=== PATIENT | female | born 1975 | race Caucasian/White ===

== ENCOUNTER 2017-02-13 00:09 | Emergency (ER) | payer OTHER ==
[2017-02-13] MEDS ORDERED: IBUPROFEN 600 MG TABLET PO ONE (01:13)
[2017-02-13] MEDS ORDERED: HYDROcodone/ACETAMINOPHEN 1 EACH TABLET PO ONE (01:13)
--- NOTE | 2017-02-13 01:18 | ERNOTE ---
Upper Extremity HPI - Narrative Date of Service: 02/13/17 - General Extremities Pain Location: shoulder: right Time Seen by Provider: 02/13/17 00:15 Source: patient - Immun/Allergies/Home Medications Immunizations: IMMUNIZATION HX Immunizations Up to Date No History of Influenza Vaccine No Hx Pneumococcal Vaccination No Allergies/Adverse Reactions: Allergies Allergy/AdvReac Type Severity Reaction Status Date / Time No Known Allergies Allergy Verified 06/26/14 14:10 Home Medications: HOME MEDICATIONS Levothyroxine Sodium 130 mcg PO DAILY 12/11/12 [Last Taken Unknown] Norgestimate-Ethinyl Estradiol [Ortho Tri-Cyclen Lo] 1 each PO DAILY 06/26/14 [ Last Taken Unknown] Sennosides/Docusate Sodium [Senokot-S] 2 tab PO DAILY 06/26/14 [Last Taken Unknown] HYDROcodone/ACETAMINOPHEN [[place] 5-325] 1 each PO Q4H PRN #20 tablet 02/13/17 [ Last Taken Unknown] - History of Present Illness Narrative: This is a 41-year-old female who comes to the emergency department complaining of right shoulder pain. She is right-hand dominant. The patient says that she woke up with the pain on . She said any little movement would make it hurt more. Over the last couple of days the pain has been getting worse. She says range of motion makes it worse. No recent injuries. Has not fallen. Not having pain up into the neck. No numbness or tingling. No chest pain or other symptoms such as shortness of breath nausea or vomiting or diaphoresis are noted. No previous injuries. Review of Systems - Review of Systems Constitutional: Present: no symptoms reported EYE: Present: no symptoms reported ENT: Present: no symptoms reported Respiratory: Present: no symptoms reported Cardiology: Present: no symptoms reported Gastrointestinal/Abdominal: Present: no symptoms reported Genitourinary: Present: no symptoms reported Musculoskeletal: Present: See HPI Neurological: Present: no symptoms reported Endocrine: Present: no symptoms reported Hematologic/Lymphatic: Present: no symptoms reported Psych: Present: no symptoms reported All Other Systems: All systems neg except as marked - Patient's Past Medical History Patient History - Medical: Diabetes Type 2, Depression Patient History - Cardiac/Respiratory: No pertinent hx Patient History - Cancer: No Hx of Cancer Patient History - Surgical Procedures: T & A, Other Patient History - Other: None LMP (females 10-50): now LMP (Calendar): 02/12/17 - Family History Mother Family History - Medical: , Diabetes Type 2 Insulin Dependent Family History - Cardiac/Respiratory: Coronary Heart Disease, Hypertension Family History - Cancer: No pertinent family hx - Social History Living Situations: alone Abuse History: No History of abuse Psych History: Hx of Depression Smoking Status: Former smoker Have you smoked in the past 12 months: No Do you dip or chew tobacco: No Patient requests Smoking Cessation Consult: No Initiate information on Smoking Cessation: No Alcohol Use: none Drug Use: none - Immunizations Immunizations Up to Date: No Hx Pneumococcal Vaccination: No History of Influenza Vaccine: No Physical Exam - Physical Exam General Appearance: Present: wd/wn, alert, no apparent distress Head Exam: Present: normal inspection, no evidence of injury Eye Exam: Normal inspection: bilateral, PERRL: bilateral Ears, Nose, Throat: Present: normal ENT inspection, normal pharynx Neck: Present: normal inspection, nontender Respiratory: Present: no respiratory distress, normal breath sounds, no accessory muscle use, lungs clear Cardiovascular/Chest: Present: regular rate, rhythm, no murmur Gastrointestinal/Abdominal: Present: nontender Back Exam: Present: normal inspection, normal range of motion Extremity Exam: Present: no edema, other - patient has a normal-appearing right shoulder contour. She has tenderness to palpation anteriorly and inferiorly in the glenoid capsule. Range of motion is intact but painful Neurological Exam: Present: alert, oriented, normal mood/affect, no motor/ sensory deficits Skin Exam: Present: normal color, warm/dry Lymphatic Exam: Present: no adenopathy ED Progress - Vital Signs Patient's Vital Signs:: I have reviewed the patient's vital signs. Vital Signs: Vital Signs 02/13/17 00:46 Temperature 36.5 C Pulse Rate 70 Respiratory 18 Rate Blood Pressure 153/100 O2 Sat by Pulse 100 Oximetry - Progress/Reassessment Chief Complaint: Upper Extremity Injury/Problem Departure Clinical Impression: Shoulder pain, acute - Departure Disposition: Home self-care Condition: Good Instructions: Shoulder Pain, [id number] Additional Instructions: As we discussed her symptoms are most consistent with uterus stretched ligament (sprain) or perhaps the tearing of the rotator cuff of your shoulder. You have nothing to make me think that you have a broken bone. Take the prescribed hydrocodone to help with severe pain. No driving or operating machinery while you take this. He may take 3 200 mg tablets of ibuprofen every 6 hours. He may not take this for more than 5 days. Given her shoulder a few days and see what happens. If you are still having significant pain he will need to talk to your doctor about getting an MRI of her shoulder performed. Use the sling as much as possible to restless shoulder ligaments. Return to the ER for new concerning symptoms Referrals: Radha Redman MD [Primary Care Provider] - Prescriptions: HYDROcodone/ACETAMINOPHEN [[place] 5-325] 1 each PO Q4H PRN #20 tablet PRN Reason: Pain
[2017-02-13] MEDS ORDERED: HYDROcodone/ACETAMINOPHEN 1 EACH TABLET ONE (01:35)
[2017-02-13] MEDS ORDERED: IBUPROFEN 600 MG TABLET ONE (01:36)
[2017-02-13 02:59] VITALS: BP 150/89
== END 2017-02-13 01:45 | disposition home or self-care (01) ==
LOC: ER 00:09
DX: M25.511 Pain in right shoulder (principal); Z87.891 Personal history of nicotine dependence

== ENCOUNTER 2017-02-13 11:56 | Emergency (ER) | payer OTHER ==
--- NOTE | 2017-02-13 13:05 | ERNOTE ---
Upper Extremity HPI - General Extremities Pain Location: shoulder: right Time Seen by Provider: 02/13/17 12:53 Source: patient, family Exam Limitations: no limitations - Immun/Allergies/Home Medications Immunizations: IMMUNIZATION HX Immunizations Up to Date No History of Influenza Vaccine No Hx Pneumococcal Vaccination No Allergies/Adverse Reactions: Allergies Allergy/AdvReac Type Severity Reaction Status Date / Time No Known Allergies Allergy Verified 02/13/17 12:12 Home Medications: HOME MEDICATIONS Levothyroxine Sodium 130 mcg PO DAILY 12/11/12 [Last Taken Unknown] Norgestimate-Ethinyl Estradiol [Ortho Tri-Cyclen Lo] 1 each PO DAILY 06/26/14 [ Last Taken Unknown] Sennosides/Docusate Sodium [Senokot-S] 2 tab PO DAILY 06/26/14 [Last Taken Unknown] HYDROcodone/ACETAMINOPHEN [[place] 5-325] 1 each PO Q4H PRN #10 tablet 02/13/17 [ Last Taken Unknown] - History of Present Illness Narrative: Patient has had right shoulder pain for a few days, she denies any injury, was seen in the ER last night and given a rx for vicodin #20, but it wasn't signed by the ERP and she wasn't able to fill it. She is coming today to get a valid script Method of Injury: Reports: no apparent injury Modifying Factors - (Improves): Reports: rest Modifying Factors - (Worsens): Reports: movement Associated Symptoms: Denies: tingling, weakness, numbness distally, loss of power (rt arm) Other Injuries: Reports: none Prior Treament: Reports: similar symptoms before Review of Systems - Review of Systems Constitutional: Absent: recent illness, fever ENT: Absent: nose congestion, sore throat Respiratory: Absent: shortness of breath Cardiology: Absent: chest pain Gastrointestinal/Abdominal: Absent: nausea, abdominal pain Genitourinary: Present: no symptoms reported Musculoskeletal: Present: See HPI Neurological: Present: See HPI. Absent: weakness, numbness - Patient's Past Medical History Patient History - Medical: Diabetes Type 2, Depression Patient History - Cardiac/Respiratory: No pertinent hx Patient History - Cancer: No Hx of Cancer Patient History - Surgical Procedures: Gastric Bypass, T & A, Other Patient History - Other: None - Family History Mother Family History - Medical: , Diabetes Type 2 Insulin Dependent Family History - Cardiac/Respiratory: Coronary Heart Disease, Hypertension Family History - Cancer: No pertinent family hx - Social History Abuse History: No History of abuse Psych History: Hx of Depression Smoking Status: Never smoker Have you smoked in the past 12 months: No - Immunizations Immunizations Up to Date: No Hx Pneumococcal Vaccination: No History of Influenza Vaccine: No Physical Exam - Physical Exam General Appearance: Present: wd/wn, alert, no apparent distress Neck: Present: normal inspection, nontender, supple, full range of motion Respiratory: Present: no respiratory distress, normal breath sounds, no accessory muscle use, lungs clear Cardiovascular/Chest: Present: regular rate, rhythm, no murmur Extremity Exam: Present: normal inspection, normal except - - pain on ROM, tender to palpation of anterior shoulder over biceps tendon, normal inspection Neurological Exam: Present: alert, oriented, normal mood/affect, no motor/ sensory deficits Skin Exam: Present: normal color, warm/dry ED Progress - Vital Signs Patient's Vital Signs:: I have reviewed the patient's vital signs. Vital Signs: Vital Signs 02/13/17 02/13/17 12:10 12:41 Temperature 36.7 C Pulse Rate 67 66 Respiratory 14 14 Rate Blood Pressure 152/92 143/82 O2 Sat by Pulse 98 97 Oximetry - Progress/Reassessment Chief Complaint: Shoulder Injury/Pain Progress Note-Subjective: 02/13/17 13:03 discussed with the patient that I usually don't treat this kind of pain with narcotics, will compromise and give her #10 on review of her chart patient has had multiple visit for shoulder pain and had imaging for neck pain in the past, no meds on review of [employer] Departure Clinical Impression: Shoulder pain, acute Qualifiers: Laterality: left Qualified Code(s): M25.512 - Pain in left shoulder - Departure Disposition: Home self-care Condition: Good Instructions: Shoulder Pain, [id number] Additional Instructions: call the orthopedic clinic for follow up Referrals: Hammad Fernandez MD [Staff Physician] - Prescriptions: HYDROcodone/ACETAMINOPHEN [[place] 5-325] 1 each PO Q4H PRN #10 tablet PRN Reason: Pain
[2017-02-13 13:12] VITALS: BP 143/95
== END 2017-02-13 13:06 | disposition home or self-care (01) ==
LOC: ER 11:56
DX: M25.511 Pain in right shoulder (principal)